=== PATIENT | male | born 1950 | race Caucasian/White ===

== ENCOUNTER 2019-05-04 07:57 | Day surgery (SDC) | payer MEDICARE ==
[~2019-05-04 07:57] MED LIST: ACETAMINOPHEN 1,000 MG/100 ML BTL IVPB ONE; FAMOTIDINE 20MG TABLET PO ONE; MECLIZINE 25 MG TABLET PO ONE; METOCLOPRAMIDE 10 MG TABLET PO ONE
[2019-05-04] MEDS ORDERED: MIDAZOLAM HCL 2MG/2ML VIAL IV ONE (07:58)
[2019-05-04] MEDS ORDERED: SEVOFLURANE 250 ML INH ONE (07:58)
[2019-05-04] MEDS ORDERED: FENTANYL PF 100MCG/2ML VIAL IV ONE (07:58)
[2019-05-04] MEDS ORDERED: LIDOCAINE 2% MDV (20MG/ML) 20ML VIAL IV ONE (07:58)
[2019-05-04] MEDS ORDERED: PROPOFOL 10 MG/ML VIAL IV ONE (07:58)
[2019-05-04] MEDS ORDERED: ONDANSETRON HCL IV 4 MG/2 ML VIAL IVP ONE (07:58)
[2019-05-04] MEDS ORDERED: GLYCOPYRROLATE 0.2 MG/ML ML IV ONE (07:58)
[2019-05-04] MEDS ORDERED: DEXAMETHASONE 4 MG/ML 1ML VIAL IVP ONE (07:58)
[2019-05-04] MEDS ORDERED: RINGERS SOLUTION,LACTATED 1,000 ML IV ONE ×2 (08:30→09:59)
--- NOTE | 2019-05-05 08:30 | Operative Note ---
DATE OF SURGERY: 05/04/2019 SURGEON: Doc Zimmerman DO DATE OF SURGERY: 10/20/2018 SURGEON: Doc Zimmerman DO PREOPERATIVE DIAGNOSES: 1. Trigger finger of the right index finger. 2. Trigger finger right middle finger. 3. Trigger finger right ring finger. POSTOPERATIVE DIAGNOSES: 1. Trigger finger of the right index finger. 2. Trigger finger right middle finger. 3. Trigger finger right ring finger. OPERATION: 1. Tenotomy A1 lelo right index finger. 2. Tenotomy A1 lelo right middle finger. 3. Tenotomy A1 lelo right ring finger. DESCRIPTION OF PROCEDURE: This 68-year-old male was taken to the operating room and placed in the supine position on the operating room table. General anesthesia was induced. The right hand was then elevated, prepped with Hibiclens, and draped in the usual sterile fashion. It was exsanguinated and the tourniquet inflated to 250 mmHg. A palmar incision was utilized starting with the index finger in line with the flexor digitorum profundus and sublimis tendon overlying the A1 lelo on the palmar aspect of the hand. A longitudinal incision was made. Dissection was carried down through the skin and subcutaneous tissue, and hemostasis obtained with the electrocautery. The proximal edge of the A1 lelo was easily identified. It was then sized from proximal to distal with the tendon under direct vision. Once we had incised the distal margin, the tendon was inspected and found to be intact. Mild nodularity of the tendon was identified. The tendon had free excursion with flexion and extension of the finger. The wound was irrigated and the wound closed with interrupted 6-0 nylon suture. We then directed our attention to the middle finger and a similar incision was made over the A1 lelo of the right middle finger. Dissection was carried down to the proximal edge of the lelo and then it was incised from its proximal to its distal margin under direct vision. Again, the tendon was identified and evaluated and found to be intact. Mild nodularity of this tendon was also identified. The wound was irrigated and the wound closed with interrupted 6-0 nylon suture. Finally, an incision was made over the A1 lelo of the ring finger, and the same procedure was performed incising the A1 lelo from its proximal to its distal margin under direct vision. Sublimis tendon also demonstrated mild nodularity in this finger as well but no disruption of tendon fibers was present in any of the fingers. The wound was irrigated and electrocautery had been used to cauterize superficial skin bleeders in all wounds. This wound also closed with interrupted 6-0 nylon suture. Sterile dressings were applied. Tourniquet released and the patient taken to the recovery room in satisfactory condition. GROSS PATHOLOGY: This patient demonstrated trigger finger of the index, middle, and ring fingers. All operative procedures were performed with 3.5 loop magnification. TIANNA
== END 2019-05-04 11:05 | disposition home or self-care (01) ==
LOC: SUR 07:57
PROVIDERS: ATTEND Orthopaedic Surgery
DX: M65.321 Trigger finger, right index finger (principal); M65.331 Trigger finger, right middle finger; M65.341 Trigger finger, right ring finger; I10 Essential (primary) hypertension; E78.00 Pure hypercholesterolemia, unspecified; E03.9 Hypothyroidism, unspecified; K21.9 Gastro-esophageal reflux disease without esophagitis
CPT/HCPCS: 93005; J2405; J7120